=== PATIENT | female | born 1995 | race Caucasian/White ===

== ENCOUNTER 2018-02-02 19:10 | Emergency (ER) | payer BC ==
[2018-02-02] MEDS ORDERED: ONDANSETRON 4 MG TAB.RAPDIS PO ONE (20:17)
[2018-02-02] MEDS ORDERED: NORMAL SALINE 1000 ML 1,000 ML IV ONE (20:17)
--- NOTE | 2018-02-02 20:19 | ER Document Report ---
ED Medical Screen (RME) - General Chief Complaint: Abdominal Pain Stated Complaint: STOMACH PAIN Time Seen by Provider: 02/02/18 20:16 Mode of Arrival: Ambulatory Information source: Patient, Parent Notes: This is a 22-year-old female with a history of multiple surgeries in the past chronic pancreatitis, known left ovarian cyst who presents to the emergency room with epigastric pain, nausea, vomiting, left lower abdominal tenderness as well. Patient denies vaginal bleeding or vaginal discharge. Patient states that the pain started 2 days ago but she came down here because she "wanted to go on vacation". Patient was out with her mother for dinner and started having worsening abdominal pain and vomiting and diarrhea. Past surgical history: SBO, hernia repair, cholecystectomy, appendectomy, right oophorectomy, ERCP, T/A TRAVEL OUTSIDE OF THE [place] IN LAST 30 DAYS: No - Related Data Allergies/Adverse Reactions: ketamine Allergy (Verified 02/02/18 19:15) morphine Allergy (Verified 02/02/18 19:15) Physical Exam - Vital signs Vitals: Temp Pulse Resp BP Pulse Ox 98.4 F 93 20 133/70 H 97 02/02/18 19:45 02/02/18 19:45 02/02/18 19:45 02/02/18 19:45 02/02/18 19:45 Course - Vital Signs Vital signs: Temp Pulse Resp BP Pulse Ox 98.4 F 93 20 133/70 H 97 02/02/18 19:45 02/02/18 19:45 02/02/18 19:45 02/02/18 19:45 02/02/18 19:45
--- NOTE | 2018-02-02 21:02 | ER Document Report ---
ED General - General Chief Complaint: Abdominal Pain Stated Complaint: STOMACH PAIN Time Seen by Provider: 02/02/18 20:16 Mode of Arrival: Ambulatory Notes: 22-year-old female patient history of ovarian cysts, history of chronic pancreatitis, history of depression to the emergency department for evaluation of nausea and vomiting and some abdominal pain. States that abdominal pain is located in the mid abdomen. Also complaining of left lower quadrant pain. Patient is concerned about her pancreatitis flaring back up again as well as her ovarian cyst. States that she had to have her right ovary removed. Patient was on a train and began having some abdominal pain and nausea after getting off the train. Denies any fever, chills, sweats. Denies any other major symptoms at this time. States that her labs are always fairly unremarkable and every time she has to get a CAT scan to be diagnosed with pancreatitis. Also requesting ultrasound of her pelvis to look at her ovarian cyst because she does not want to lose her other ovary from a torsion. TRAVEL OUTSIDE OF THE [place] IN LAST 30 DAYS: No - HPI Onset: Just prior to arrival Onset/Duration: Gradual, Persistent - Related Data Allergies/Adverse Reactions: ketamine Allergy (Verified 02/02/18 19:15) morphine Allergy (Verified 02/02/18 19:15) Past Medical History - General Information source: Patient, Parent - Social History Smoking Status: Never Smoker Chew tobacco use (# tins/day): No Frequency of alcohol use: None Drug Abuse: None Lives with: Parents Family History: Reviewed & Not Pertinent Patient has suicidal ideation: No Patient has homicidal ideation: No - Medical History Notes: Chronic pancreatitis, depression, ovarian cyst Renal/ Medical History: Denies: Hx Peritoneal Dialysis Past Surgical History: Reports: Hx Abdominal Surgery, Hx Appendectomy, Hx Bowel Surgery, Hx Cholecystectomy Review of Systems - Review of Systems Constitutional: No symptoms reported. denies: Fever, Malaise, Weakness EENT: No symptoms reported Cardiovascular: denies: Chest pain, Palpitations, Heart racing Respiratory: denies: Cough, Hurts to breathe, Short of breath, Wheezing Gastrointestinal: Abdominal pain, Nausea, Vomiting. denies: Diarrhea Genitourinary: denies: Burning, Dysuria, Discharge Female Genitourinary: No symptoms reported Musculoskeletal: denies: Back pain, Joint pain, Muscle pain, Muscle stiffness Skin: No symptoms reported Hematologic/Lymphatic: No symptoms reported Neurological/Psychological: No symptoms reported Physical Exam - Vital signs Vitals: Temp Pulse Resp BP Pulse Ox 98.4 F 93 20 133/70 H 97 02/02/18 19:45 02/02/18 19:45 02/02/18 19:45 02/02/18 19:45 02/02/18 19:45 Interpretation: Normal - General General appearance: Appears well, Alert - HEENT Head: Normocephalic, Atraumatic Eyes: Normal Pupils: PERRL - Respiratory Respiratory status: No respiratory distress Chest status: Nontender Breath sounds: Normal Chest palpation: Normal - Cardiovascular Rhythm: Regular Heart sounds: Normal auscultation Murmur: No - Abdominal Inspection: Normal Distension: No distension Bowel sounds: Normal Tenderness: Nontender. No: Tee's sign, Guarding, Rebound Organomegaly: No organomegaly - Back Back: Normal, Nontender - Extremities General upper extremity: Normal inspection, Nontender, Normal color, Normal ROM , Normal temperature General lower extremity: Normal inspection, Nontender, Normal color, Normal ROM , Normal temperature, Normal weight bearing. No: Quita's sign - Neurological Neuro grossly intact: Yes Cognition: Normal Orientation: AAOx4 Quinn Coma Scale Eye Opening: Spontaneous Quinn Coma Scale Verbal: Oriented Quinn Coma Scale Motor: Obeys Commands Adrian Coma Scale Total: 15 Speech: Normal Motor strength normal: LUE, RUE, LLE, RLE Sensory: Normal - Psychological Associated symptoms: Normal affect, Normal mood - Skin Skin Temperature: Warm Skin Moisture: Dry Skin Color: Normal Course - Re-evaluation Re-evalutation: 02/02/18 23:10 Patient feeling better at this time. No elevated lipase. Does not have a gallbladder. Does have some mild elevated LFTs but fairly insignificant. Patient does not have any right upper quadrant tenderness. No organomegaly. Most the patient's pain was in the central abdomen as well as left lower quadrant. At this time advising patient to advance diet as tolerated. Pain medication and nausea medication. Will DC at this time. 02/02/18 23:55 Laboratory 02/02/18 02/02/18 02/02/18 21:28 21:28 21:28 WBC 5.9 RBC 4.77 Hgb 13.0 Hct 39.0 MCV 82 MCH 27.2 MCHC 33.3 RDW 16.1 H Plt Count 284 Seg Neutrophils % 50.7 Lymphocytes % 35.6 Monocytes % 9.5 Eosinophils % 3.7 Basophils % 0.5 Absolute Neutrophils 3.0 Absolute Lymphocytes 2.1 Absolute Monocytes 0.6 Absolute Eosinophils 0.2 Absolute Basophils 0.0 Sodium 143.6 Potassium 4.3 Chloride 102 Carbon Dioxide 27 Anion Gap 15 BUN 12 Creatinine 0.70 Est GFR ( Amer) > 60 Est GFR (Non-Af Amer) > 60 Glucose 100 Calcium 9.8 Total Bilirubin 0.4 Direct Bilirubin 0.2 Neonat Total Bilirubin Not Reportable Neonat Direct Bilirubin Not Reportable Neonat Indirect Bili Not Reportable AST 90 H ALT 125 H Alkaline Phosphatase 42 Total Protein 7.5 Albumin 4.7 Lipase 127.2 Serum HCG, Qual NEGATIVE Urine Color Urine Appearance Urine pH Ur Specific Willards Urine Protein Urine Glucose (UA) Urine Ketones Urine Blood Urine Nitrite Urine Bilirubin Urine Urobilinogen Ur Leukocyte Esterase Urine RBC (Auto) Squamous Epi Cells Auto Amorphous Sediment Auto Urine Ascorbic Acid 02/02/18 21:45 WBC RBC Hgb Hct MCV MCH MCHC RDW Plt Count Seg Neutrophils % Lymphocytes % Monocytes % Eosinophils % Basophils % Absolute Neutrophils Absolute Lymphocytes Absolute Monocytes Absolute Eosinophils Absolute Basophils Sodium Potassium Chloride Carbon Dioxide Anion Gap BUN Creatinine Est GFR ( Amer) Est GFR (Non-Af Amer) Glucose Calcium Total Bilirubin Direct Bilirubin Neonat Total Bilirubin Neonat Direct Bilirubin Neonat Indirect Bili AST ALT Alkaline Phosphatase Total Protein Albumin Lipase Serum HCG, Qual Urine Color YELLOW Urine Appearance CLOUDY Urine pH 9.0 Ur Specific Willards 1.025 Urine Protein 30 H Urine Glucose (UA) NEGATIVE Urine Ketones NEGATIVE Urine Blood NEGATIVE Urine Nitrite NEGATIVE Urine Bilirubin NEGATIVE Urine Urobilinogen 2.0 H Ur Leukocyte Esterase TRACE H Urine RBC (Auto) 2 Squamous Epi Cells Auto 10 Amorphous Sediment Auto TRACE Urine Ascorbic Acid NEGATIVE Transvaginal US 02/02/18 21:04 IMPRESSION: NORMAL TRANSVAGINAL PELVIC ULTRASOUND. - Vital Signs Vital signs: Temp Pulse Resp BP Pulse Ox 98.5 F 85 16 127/64 H 97 02/02/18 23:41 02/02/18 23:41 02/02/18 23:41 02/02/18 23:41 02/02/18 23:41 - Laboratory Result Diagrams: 02/02/18 21:28 02/02/18 21:28 Laboratory results interpreted by me: 0702/02/18 02/02/18 21:28 21:28 21:45 RDW 16.1 H AST 90 H ALT 125 H Urine Protein 30 H Urine Urobilinogen 2.0 H Ur Leukocyte Esterase TRACE H Discharge - Discharge Clinical Impression: Chronic abdominal pain, Left ovarian cyst Condition: Good Disposition: HOME, SELF-CARE Instructions: Abdominal Pain ([facility]), Antinausea Medication ([facility]), Low-Fat Diet ( [facility]), Oral Narcotic Medication ([facility]), Ovarian Cyst ([facility]), Pain Medication Injection ([facility]) Additional Instructions: Take your pain medication nausea medication as instructed. Advance diet slowly. Clear liquids initially. [place] diet following liquids. If symptoms get worse please return. Please follow-up with your regular doctor for repeat evaluation and treatment. Prescriptions: Hydrocodone/Acetaminophen [[place] 5-325 mg Tablet] 1 tab PO TID 4 Days #12 tablet Ondansetron [Zofran Odt 4 mg Tablet] 1 - 2 tab PO Q4H PRN #15 tab.rapdis PRN Reason: For Nausea/Vomiting
[2018-02-02] MEDS ORDERED: HYDROMORPHONE HCL INJ/PF 2 MG/ML AMPULE IV ONE (21:05)
[2018-02-02 21:57] LABS: ABSOLUTE EOSINOPHILS # (AUTO) 0.2 10^3/uL (0.0-0.6); ABSOLUTE LYMPHOCYTES (AUTO) 2.1 10^3/uL (0.5-4.7); ABSOLUTE MONOCYTES (AUTO) 0.6 10^3/uL (0.1-1.4); BASOPHILS % (AUTO) 0.5 % (0-2); EOSINOPHILS % (AUTO) 3.7 % (0-6); LYMPHOCYTES % (AUTO) 35.6 % (13-45); MEAN CORPUSCULAR HEMOGLOBIN 27.2 pg (27.0-33.4); MEAN CORPUSCULAR HGB CONC 33.3 g/dL (32.0-36.0); MEAN CORPUSCULAR VOLUME 82 fl (80-97); MONOCYTES % (AUTO) 9.5 % (3-13); PLATELET COUNT 284 10^3/uL (150-450); RED BLOOD COUNT 4.77 10^6/uL (3.72-5.28); RED CELL DISTRIBUTION WIDTH 16.1 % (11.5-14.0); SEGMENTED NEUTROPHILS % (AUTO) 50.7 % (42-78); TOTAL CELLS COUNTED % (AUTO) 100 %; WHITE BLOOD COUNT 5.9 10^3/uL (4.0-10.5)
[2018-02-02 22:09] LABS: AMORPHOUS SEDIMENT,URINE TRACE /HPF; APPEARANCE,URINE CLOUDY; BILIRUBIN,URINE NEGATIVE (NEGATIVE); COLOR,URINE YELLOW; GLUCOSE, URINE NEGATIVE (NEGATIVE); KETONES,URINE NEGATIVE (NEGATIVE); LEUKOCYTE ESTERASE,URINE TRACE (NEGATIVE); NITRITE,URINE NEGATIVE (NEGATIVE); PROTEIN,URINE 30 mg/dL (NEGATIVE); URINE SPECIFIC GRAVITY 1.025
--- NOTE | 2018-02-02 22:12 | RADIOLOGY REPORT (SQ) ---
EXAM DESCRIPTION: U/S NON OB PEL TV W/DOPPLER COMPLETED DATE/TIME: 02/02/2018 9:53 pm REASON FOR STUDY: left "ovary pain", hx of torsion LMP 09/03/2017 COMPARISON: None. TECHNIQUE: Dynamic and static grayscale images acquired of the pelvis via transvaginal approach and recorded on PACS. Additional selected color Doppler and spectral images recorded. LIMITATIONS: None. FINDINGS: UTERUS: Contour normal. No mass. ENDOMETRIAL STRIPE: No focal or generalized thickening. No masses. CERVIX: 1.7 cm. No nabothian cysts. RIGHT OVARY AND DOPPLER: Surgically absent. LEFT OVARY AND DOPPLER: Normal size. No worrisome masses. There is a 2 x 2 x 2 cm cyst. Normal ab rial vascular flow without evidence for torsion. FREE FLUID: None noted. OTHER: No other significant finding. MEASUREMENTS: UTERUS: 5.8 x 2.9 x 3.1 cm. ENDOMETRIAL STRIPE: 3 mm. RIGHT OVARY: Surgically absent. LEFT OVARY: 3.5 x 2.7 x 3 cm. IMPRESSION: NORMAL TRANSVAGINAL PELVIC ULTRASOUND. TECHNICAL DOCUMENTATION: JOB ID: [id number]- All Rights Reserved Rev-11/20 Reading location - IP/workstation name: [email or web address]
[2018-02-02 22:22] LABS: ALANINE AMINOTRANSFERASE 125 U/L (9-52); ALBUMIN 4.7 g/dL (3.5-5.0); ALKALINE PHOSPHATASE 42 U/L (38-126); ANION GAP 15 (5-19); ASPARTATE AMINO TRANSFERASE 90 U/L (14-36); BILIRUBIN,DIRECT 0.2 mg/dL (0.0-0.4); BILIRUBIN,TOTAL 0.4 mg/dL (0.2-1.3); BLOOD UREA NITROGEN 12 mg/dL (7-20); CALCIUM 9.8 mg/dL (8.4-10.2); CARBON DIOXIDE 27 mmol/L (22-30); CHLORIDE 102 mmol/L (98-107); GLUCOSE 100 mg/dL (75-110); LIPASE 127.2 U/L (23-300); POTASSIUM 4.3 mmol/L (3.6-5.0); SODIUM 143.6 mmol/L (137-145); TOTAL PROTEIN 7.5 g/dL (6.3-8.2)
[2018-02-02] MEDS ORDERED: HYDROCODONE/ACETAMINOPHEN 5-325 MG (6 TAB/ER DISP) PO PRN (23:09)
[2018-02-02] MEDS ORDERED: ONDANSETRON ODT 4 MG TAB (6 TAB/ER DISP) PO PRN (23:10)
[2018-02-02 23:42] VITALS: BP 127/64
== END 2018-02-02 23:42 | disposition home or self-care (01) ==
LOC: ER 19:10
DX: N83.202 Unspecified ovarian cyst, left side (principal); G89.29 Other chronic pain; R10.84 Generalized abdominal pain; Z88.6 Allergy status to analgesic agent; Z90.49 Acquired absence of other specified parts of digestive tract
CPT/HCPCS: 99284; 96361; 96374; 36415; 83690; 84703; 85025; 80053; 81001; 76830; 93976; S0119; J1170; J7030

== ENCOUNTER 2018-09-08 18:38 | Emergency (ER) | payer BC ==
--- NOTE | 2018-09-08 19:20 | ER Document Report ---
ED Psych Disorder / Suicide - General Chief Complaint: Suicidal Ideation Stated Complaint: PSYCH Time Seen by Provider: 09/08/18 19:14 Mode of Arrival: Ambulatory Information source: Patient Notes: HISTORY OF PRESENT ILLNESS: Patient is a 23-year-old female with a past medical history of depression and bipolar disorder who presents with depression and suicidal ideations. Onset: 1 week ago Provocation: Unknown Quality: Increased depression Radiation: None Severity: Moderate Timing: Constant SI/HI: "I am thinking of either overdosing on my medications or jumping out of a car on the highway" Hallucinations: None Current therapist: Yes Current treatment: Yes REVIEW OF SYSTEMS: CONSTITUTIONAL : Denies fever or chills, no sweats. Denies recent illness. EENT: Denies eye, ear, throat, or mouth pain or symptoms. Denies nasal or sinus congestion. CARDIOVASCULAR: Denies chest pain. RESPIRATORY: Denies cough, cold, or chest congestion. Denies shortness of breath, difficulty breathing, or wheezing. GASTROINTESTINAL: Denies abdominal pain. Denies nausea, vomiting, or diarrhea. Denies constipation. GENITOURINARY: Denies difficulty urinating, painful urination, burning, freque ncy, or blood in urine. FEMALE GENITOURINARY: Denies vaginal bleeding, abnormal or irregular periods. Last menstrual period MUSCULOSKELETAL: Denies neck or back pain or joint pain or swelling. SKIN: Denies rash or skin lesions. HEMATOLOGIC : Denies easy bruising or bleeding. LYMPHATIC: Denies swollen, enlarged glands. NEUROLOGICAL: Denies altered mental status or loss of consciousness. Denies headache. Denies weakness or paralysis or loss of use of either side. Denies problems with gait or speech. Denies sensory or motor loss. PSYCHIATRIC: Positive for suicidal thoughts. Positive for increased depression. All other systems reviewed and negative. PHYSICAL EXAMINATION: GENERAL: Well-appearing, well-nourished and in no acute distress. HEAD: Atraumatic, normocephalic. No scalp deformity, depression, or crepitance. EYES: Pupils are 3 mm and equal/round/reactive to light, extraocular movements intact, sclera anicteric, conjunctiva are normal. ENT: Nares patent bilaterally, oropharynx clear without exudates or palatal petechia. Moist mucous membranes. No tonsil hypertrophy. NECK: Normal range of motion, supple without lymphadenopathy. LUNGS: Breath sounds present, equal, and clear to auscultation bilaterally. No wheezes, rales, or rhonchi. HEART: Regular rate and rhythm without murmurs, rubs, or gallops. 2+ peripheral pulses. Normal capillary refill. ABDOMEN: Soft, nontender, nondistended. Normoactive bowel sounds. No guarding, no rebound. No masses appreciated. BACK: Normal contour, no midline tenderness. Rectal exam deferred. PELVC: Deferred. EXTREMITIES: Normal range of motion, no pitting or edema. No cyanosis. NEUROLOGICAL: No focal neurological deficits. Moves all extremities spontaneously and on command. PSYCH: Depressed mood, normal affect. Positive for suicidal thoughts/ideations. No homocidal thoughts/ideations. No hallucinations. SKIN: Warm, dry, normal turgor, no rashes or lesions noted. ASSESSMENT AND PLAN: This patient is a 23-year-old female who presents with suicidal ideations and increasing depression. 1. Will obtain medical clearance and involuntarily commit the patient for inpatient treatment. 2. Will observe overnight. TRAVEL OUTSIDE OF THE [place] IN LAST 30 DAYS: No - Related Data Allergies/Adverse Reactions: ketamine Allergy (Verified 02/02/18 19:15) morphine Allergy (Verified 02/02/18 19:15) Past Medical History - General Information source: Patient - Social History Smoking Status: Never Smoker Chew tobacco use (# tins/day): No Frequency of alcohol use: None Drug Abuse: None Lives with: Family Family History: Reviewed & Not Pertinent Patient has suicidal ideation: No Patient has homicidal ideation: No - Medical History Medical History: Negative - Past Medical History Cardiac Medical History: Reports: None Pulmonary Medical History: Reports: None EENT Medical History: Reports: None Neurological Medical History: Reports: None Endocrine Medical History: Reports: None Renal/ Medical History: Reports: None. Denies: Hx Peritoneal Dialysis Malignancy Medical History: Reports: None GI Medical History: Reports: None Musculoskeletal Medical History: Reports None Skin Medical History: Reports None Psychiatric Medical History: Reports: Hx Bipolar Disorder, Hx Depression Traumatic Medical History: Reports: None Infectious Medical History: Reports: None Past Surgical History: Reports: Hx Abdominal Surgery, Hx Appendectomy, Hx Bowel Surgery, Hx Cholecystectomy - Immunizations Immunizations up to date: Yes Hx Diphtheria, Pertussis, Tetanus Vaccination: Yes History of Influenza Vaccine for 04/2017 - 09/2017 Season: Unknown Physical Exam - Vital signs Vitals: Temp Pulse Resp BP Pulse Ox 99.6 F 107 H 20 145/93 H 96 09/08/18 18:44 09/08/18 18:44 09/08/18 18:44 09/08/18 18:44 09/08/18 18:44 Course - Re-evaluation Re-evalutation: 09/09/18 03:38 Patient is medically cleared. - Vital Signs Vital signs: Temp Pulse Resp BP Pulse Ox 99.6 F 107 H 20 145/93 H 96 09/08/18 18:44 09/08/18 18:44 09/08/18 18:44 09/08/18 18:44 09/08/18 18:44 - Laboratory Result Diagrams: 09/08/18 19:39 09/08/18 19:39 Laboratory results interpreted by me: 09/08/18 09/08/18 09/08/18 19:39 19:39 19:39 RDW 14.9 H Glucose 136 H Calcium 10.6 H AST 110 H ALT 152 H Urine Blood SMALL H Salicylates < 1.0 L Acetaminophen < 10 L - EKG Interpretation by Sc EKG shows normal: Sinus rhythm Rate: Normal Rhythm: NSR Commerce/QRS: No: Right axis deviation, Left axis deviation, RBBB, LBBB, IVCD, LAHB/LAFB, LPHB/LPFB, Bifasicular block Voltage: No: Increased voltage, Consistant with LVH, Decreased voltage, Throu ghout, Limb leads P Waves: No: DAILY, LAE, Absent, AV Dissociation, Other Heart block present: No: 1st Degree, Mobitz 1, Mobitz 2, CHB (3rd degree block) When compared to previous EKG there are: Previous EKG unavailable Discharge - Discharge Clinical Impression: Chronic depression, Suicidal thoughts Condition: Stable Disposition: PSYCH HOSP/UNIT
[2018-09-08 20:50] LABS: ABSOLUTE BASOPHILS # (AUTO) 0.1 10^3/uL (0.0-0.2); ABSOLUTE EOSINOPHILS # (AUTO) 0.2 10^3/uL (0.0-0.6); ABSOLUTE LYMPHOCYTES (AUTO) 2.3 10^3/uL (0.5-4.7); ABSOLUTE MONOCYTES (AUTO) 0.4 10^3/uL (0.1-1.4); ABSOLUTE NEUT (AUTO) 5.3 10^3/uL (1.7-8.2); BASOPHILS % (AUTO) 0.6 % (0-2); EOSINOPHILS % (AUTO) 2.5 % (0-6); LYMPHOCYTES % (AUTO) 27.4 % (13-45); MEAN CORPUSCULAR HEMOGLOBIN 28.7 pg (27.0-33.4); MEAN CORPUSCULAR HGB CONC 34.1 g/dL (32.0-36.0); MEAN CORPUSCULAR VOLUME 84 fl (80-97); MONOCYTES % (AUTO) 4.6 % (3-13); PLATELET COUNT 321 10^3/uL (150-450); RED BLOOD COUNT 4.87 10^6/uL (3.72-5.28); RED CELL DISTRIBUTION WIDTH 14.9 % (11.5-14.0); SEGMENTED NEUTROPHILS % (AUTO) 64.9 % (42-78); TOTAL CELLS COUNTED % (AUTO) 100 %; WHITE BLOOD COUNT 8.2 10^3/uL (4.0-10.5)
[2018-09-08 20:54] LABS: APPEARANCE,URINE SLIGHTLY-CLOUDY; BILIRUBIN,URINE NEGATIVE (NEGATIVE); COLOR,URINE YELLOW; GLUCOSE, URINE NEGATIVE (NEGATIVE); KETONES,URINE NEGATIVE (NEGATIVE); LEUKOCYTE ESTERASE,URINE NEGATIVE (NEGATIVE); NITRITE,URINE NEGATIVE (NEGATIVE); PROTEIN,URINE NEGATIVE (NEGATIVE); URINE SPECIFIC GRAVITY 1.026; UROBILINOGEN,URINE NEGATIVE mg/dL (<2.0)
[2018-09-08 21:02] LABS: URINE AMPHETAMINES SCREEN NEGATIVE; URINE BARBITURATES SCREEN NEGATIVE; URINE BENZODIAZEPINES SCREEN NEGATIVE; URINE COCAINE SCREEN NEGATIVE; URINE MARIJUANA (THC) SCREEN NEGATIVE; URINE METHADONE SCREEN NEGATIVE; URINE PHENCYCLIDINE SCREEN NEGATIVE
[2018-09-08 21:07] LABS: ALANINE AMINOTRANSFERASE 152 U/L (9-52); ALKALINE PHOSPHATASE 59 U/L (38-126); ANION GAP 13 (5-19); ASPARTATE AMINO TRANSFERASE 110 U/L (14-36); BILIRUBIN,DIRECT 0.3 mg/dL (0.0-0.4); BILIRUBIN,TOTAL 0.4 mg/dL (0.2-1.3); BLOOD UREA NITROGEN 13 mg/dL (7-20); CALCIUM 10.6 mg/dL (8.4-10.2); CARBON DIOXIDE 26 mmol/L (22-30); CHLORIDE 102 mmol/L (98-107); GLUCOSE 136 mg/dL (75-110); POTASSIUM 4.4 mmol/L (3.6-5.0); SODIUM 140.7 mmol/L (137-145); TOTAL PROTEIN 7.9 g/dL (6.3-8.2)
[2018-09-08 21:09] LABS: ACETAMINOPHEN < 10 ug/mL (10-30); ALCOHOL < 10 mg/dL (NONE DETECTED); SALICYLATE < 1.0 mg/dL (2.0-20.0)
[2018-09-09] MEDS ORDERED: LORAZEPAM 1 MG TABLET PO PRN (00:34)
[2018-09-09] MEDS ORDERED: LITHIUM CARBONATE 450 MG TABLET.ER PO ONE (00:45)
[2018-09-09] MEDS ORDERED: GABAPENTIN 300 MG CAPSULE PO ONE (00:45)
[2018-09-09] MEDS ORDERED: QUETIAPINE FUMARATE 100 MG TABLET PO ONE (00:45)
[2018-09-09] MEDS ORDERED: LAMOTRIGINE 100 MG TABLET PO ONE (01:00)
[2018-09-09] MEDS ORDERED: LITHIUM CARBONATE 300 MG CAPSULE ONE (01:29)
--- NOTE | 2018-09-09 09:46 | ER Document Report ---
Doctor's Note Notes: 09/09/18 09:44 Patient interviewed and examined. She admits to a long time history of suicidal ideation. Admits to having tried to overdose in the past. States she is here from out of town, has her medications with her. States she is being compliant with them. Is looking forward to the future, going back to [place] on Thursday with her parents. Feels comfortable with the idea of discharge. She denies any current suicidal ideation, no homicidal ideation. She denies any hallucinations. Patient is awake and alert, cooperative with examiner. Head is normocephalic and atraumatic. Heart is regular rate and rhythm, lungs are clear to auscultation bilaterally. Affect is normal. Plan is to institute medications per previous meds as well as psychiatric recommendations. Will check lithium level. Likely discharge for outpatient therapy, patient feels safe with this. 09/09/18 11:04 Update: Notified by nursing and psych that the patient has become agitated. Evidently she was frustrated at the idea of not going inpatient, states we are "just wasting her vacation.". Became very agitated. Her lithium level is low. Decision made to observe her overnight here to make sure her medications are becoming therapeutic and she sees improvement. Patient's aunt was here, feels confident this is the right decision.
[2018-09-09] MEDS ORDERED: LITHIUM CARBONATE 450 MG TABLET.ER PO SCH (10:00)
[2018-09-09] MEDS ORDERED: GABAPENTIN 300 MG CAPSULE PO SCH (10:00)
[2018-09-09] MEDS ORDERED: LAMOTRIGINE 100 MG TABLET PO SCH ×2 (10:00)
[2018-09-09] MEDS: GABAPENTIN 300 MG CAPSULE PO SCH ×2 (10:40→17:05)
--- NOTE | 2018-09-09 11:06 | PSYCHOLOGICAL NOTE ---
Psych Note - Psych Note Date seen by psych provider: 09/09/18 Time seen by psych provider: 07:35 Psych Note: Reason for Consult: Suicidal ideation Patient is a 23-year-old female with a past medical history of depression and bipolar disorder who presents with depression and suicidal ideations. Patient reports to [facility] for suicidal ideation that "comes and goes." She discloses that it has increased in the last few days and reported a plan of taking her medications. Clinician notes patient told attending physician during the evening that she had a plan of either overdosing on her medications or jumping into traffic. She reports is an increase in stress because her mother just had surgery and she has been helping with a colostomy bag and taking care of her "sister's kids." She reports that she is here visiting from [place] and just arrived on Thursday and plans to leave on Thursday coming up. She has an appointment with [facility] [place], [place] upon returning. Patient confirms she has had recent medication changes. On 09/02/2018 she was started on lithium and taken off of Prozac and BuSpar. She reports that she was not tapered off the Prozac. She has been on gabapentin, Seroquel and Lamictal "for a while" and was instructed to continue taking them. Patient confirms she has been inpatient "loads of times." Clinician spoke with patient's aunt at bedside per patient's request. She discloses last night the patient did attempt to open the car door to jump out. This is what led to integrated family services being called out. She reports that she has been controlling medications providing the patient her medications as needed. Patient is alert and orientated to person, place, time and circumstance. Mood is euthymic with congruent affect as evidenced by smiling engaging with clinician. Patient endorses passive suicidal ideation i.e. no plans means or intent. Clinician notes she disclosed multiple plans and reached out for assistance immediately upon feeling these. Patient does suffer from chronic passive suicidal ideation. She denies homicidal ideation. Delusions are absent behaviors congruent with an intact reality based presentation i.e. organized linear thought process. Eye contact is well-maintained. Conversational speech is within normal rate, tone and prosody. Intellectual abilities appear to be within the average range. Attention and concentration are good. Insight, judgment, impulse control are good as evidenced by reaching out for assistance immediately coming to [facility] voluntarily. Medication recommendations per [facility]'s contracted psychiatrist Dr. Sun MELTON are as follows Continue home medication of gabapentin 600 mg twice daily Discontinue Seroquel Decrease home medication of Lamictal to 200 mg daily Increase home medication of lithium to 300 mg every morning and 600 mg nightly Borderline personality disorder Borderline personality disorder per history provided by patient Impression\\plan: Patient is recommended for continued IVC. Patient discloses passive suicidal ideation i.e. no plans means or intent. Patient did demonstrate one impulsive action the previous evening of opening the car door with the intent of jumping out. Patient's increase in her chronic suicidal ideation could be from her recent medication changes and increase in stress. Patient is here visiting for only 1 week and is recommended to continue with her outpatient mental health services upon returning to [place]. Inpatient psychiatric treatment would not be appropriate for this patient. Patient needs outpatient mental health services in the form of pubic services such as CBT or DBT to help patient the patient appropriately interpret her environment, learn her triggers and develop positive coping skills. Patient is noted to be subtheraputic on her [place] that she started 09/02/2018. Patient will be re- evaluated tomorrow. Dr. Garcia was consulted on the care and management of this patient; attending physician is in agreement with recommendations and disposition.
--- NOTE | 2018-09-09 12:35 | EKG REPORT ---
SEVERITY:- NORMAL ECG - SINUS RHYTHM : Confirmed by: Ashley Hartley MD 09-Sep-2018 12:34:29
[2018-09-09] MEDS ORDERED: LITHIUM CARBONATE 300 MG CAPSULE PO SCH (22:00)
[2018-09-09] MEDS ORDERED: QUETIAPINE FUMARATE 100 MG TABLET PO SCH (22:00)
[2018-09-10] MEDS ORDERED: DIPHENHYDRAMINE HCL 50 MG CAPSULE PO ONE (00:16)
--- NOTE | 2018-09-10 09:13 | PSYCHOLOGICAL NOTE ---
Psych Note - Psych Note Date seen by psych provider: 09/10/18 Time seen by psych provider: 07:50 Psych Note: Reason for Consult: Suicidal ideation Patient is a 23-year-old female with a past medical history of depression and bipolar disorder who presents with depression and suicidal ideations. Patient reports to [facility] for suicidal ideation that "comes and goes." Check in with patient Clinician discussed with patient her behaviors the previous evening. Patient confirms they are inappropriate and apologized. Patient denies any thoughts of wanting to harm herself and confirms she will allow her aunt to continue administering her medication. She reports she has an outpatient mental health provider in [place]. She is returning home to [place] on Thursday. She is engaging in intensive outpatient therapy for DBT. Clinician provided psychoeducation on patient's diagnosis, behavioral aspects of this diagnosis, the need for therapeutic intervention, and building positive coping skills. Medication recommendations per [facility]'s contracted psychiatrist Dr. Sun MELTON are as follows Continue home medication of gabapentin 600 mg twice daily Discontinue Seroquel Decrease home medication of Lamictal to 200 mg daily Increase home medication of lithium to 300 mg every morning and 600 mg nightly Borderline personality disorder Borderline personality disorder per history provided by patient Impression/Plan: Patient is cleared from acute psychiatric service. Patient no longer meets IVC criteria per [place] GS 122C. Patient denies any thoughts of wanting harm herself. Patient did receive medication adjustments and was observed overnight. Patient did have some behavioral issues overnight that was attention seeking. Clinician discussed with patient appropriate behaviors and the need for therapeutic services i.e. CBT or DBT. She confirms when she returns to [place] she is already enrolled in this going to be starting intense outpatient therapy on 09/13/2018. Patient was provided medication recommendations. She has outpatient provider in [place] where she lives. She is aunt agrees to continue administering medications so the patient does not have access to medications weapons. Dr. Garcia was consulted and care management this patient; attending physicians agreement with recommendations and disposition.
[2018-09-10 09:27] VITALS: BP 142/91
[2018-09-10] MEDS: GABAPENTIN 300 MG CAPSULE PO SCH (09:28)
--- NOTE | 2018-09-10 09:42 | ER Document Report ---
Doctor's Note Notes: 09/10/18 09:41 Rounds: Chart reviewed and patient interviewed. Patient is being evaluated for chronic depression and suicidal thoughts. Vital signs are all essentially normal. Lab studies were all essentially normal. Minimal elevation of liver enzymes, felt to be of no clinical significance. Patient appears to be medi nina stable for transfer or discharge. Ottoniel Damico MD
[2018-09-10] MEDS ORDERED: LAMOTRIGINE 100 MG TABLET PO SCH (10:00)
[2018-09-10] MEDS ORDERED: LITHIUM CARBONATE 300 MG CAPSULE PO SCH (10:00)
== END 2018-09-10 09:40 | disposition home or self-care (01) ==
LOC: ER 18:38
DX: F31.9 Bipolar disorder, unspecified (principal); F60.3 Borderline personality disorder; R45.851 Suicidal ideations; Z79.899 Other long term (current) drug therapy; Z88.8 Allergy status to other drugs, medicaments and biological substances; Z88.5 Allergy status to narcotic agent
CPT/HCPCS: 93005; 99285; 36415; 80307 ×4; 80178; 85025; 80053; 81001; 93010; J3490 ×2